=== PATIENT | female | born 1985 | race African-American/Black ===

== ENCOUNTER 2016-12-06 23:15 | Emergency (ER) | payer OTHER ==
[~2016-12-06] VITALS: Ht 152.4 cm; Wt 79.4 kg
--- NOTE | 2016-12-06 23:25 | ED GI/GU/ABDOMINAL COMPLAINT ---
History of Present Illness General Chief Complaint: Abdominal Pain/Flank Pain Stated Complaint: ABD PAIN Source: patient Exam Limitations: no limitations Vital Signs & Intake/Output Vital Signs & Intake/Output Vital Signs Date Time Temp Pulse Resp B/P B/P Pulse O2 O2 Flow FiO2 Mean Ox Delivery Rate 12/06 2325 98.2 83 18 137/90 100 ED Intake and Output 12/07 0000 12/06 1200 Intake Total Output Total Balance Patient 175 lb Weight Triage Nurses Notes Reviewed? yes ? N Is pt currently ? No Onset: Gradual Duration: getting worse Timing: recent history Quality/Severity: sharpness, severe, stabbing Severity Numbers: 7 Location: left lower quadrant Radiation: no radiation Prior Abdominal Problems: similar symptoms HPI: Patient is a 31-year-old female with an unremarkable past medical history presents emergency room with symptoms of a 6-8 month history of intermittent left lower quadrant pains where she states in the last 24 hours the pain has significantly worsened requiring patient to present to the emergency room for further evaluation and treatment. Patient has not taken any medications for symptoms. Patient does state that she has a 2 day history of increased frequency of urination. Last bowel movement was today no blood no melena noted. Patient denies any fever or chills back pain hematuria vaginal bleeding vaginal discharge. Patient currently is menstruating. Patient has not followed up outpatient for her symptoms as stated above Patient can tolerate by mouth with no change in symptoms (CUATE WOLFE) Allergies Coded Allergies: NO KNOWN ALLERGIES (12/07/16) Reconcile Medications Ketorolac Tromethamine 10 MG TABLET 1 TAB PO TID PRN PAIN (COLE CRUZ,MARYANA Moore) Past History Travel History Traveled to [place] past 21 day No Medical History Any Pertinent Medical History? none Neurological: NONE EENT: NONE Cardiovascular: NONE Respiratory: NONE Gastrointestinal: NONE Hepatic: NONE Renal: NONE Musculoskeletal: NONE Psychiatric: NONE Endocrine: NONE Blood Disorders: NONE Cancer(s): NONE PARTY SUPPLY SPECIALIST/Reproductive: NONE Surgical History Surgical History: non-contributory, N Psychosocial History What is your primary language Chilean Family History Hx Contributory? No (CUATE WOLFE) Review of Systems Review of Systems Constitutional: Reports: no symptoms. EENTM: Reports: no symptoms. Respiratory: Reports: no symptoms. Cardiovascular: Reports: no symptoms. GI: Reports: see HPI, abdominal pain. Genitourinary: Reports: see HPI, dysuria. Musculoskeletal: Reports: no symptoms. Skin: Reports: no symptoms. Neurological/Psychological: Reports: no symptoms. Hematologic/Endocrine: Reports: no symptoms. Immunologic/Allergic: Reports: no symptoms. All Other Systems: Reviewed and Negative (CUATE WOLFE) Physical Exam Physical Exam General Appearance: no apparent distress, alert, comfortable Gastrointestinal: normal bowel sounds, soft Comments: Well-developed well-nourished person in no acute distress HEENT: Normal EENT exam Neck: Supple, no lymphadenopathy, normal range of motion without pain or tenderness Back: Nontender, no CVA tenderness. Cardiovascular: Regular rate and rhythms no murmurs rubs or gallops, normal JVP Respiratory: Chest nontender. No respiratory distress.breath sounds clear to auscultation bilaterally Abdomen: Soft, GENERALIZED tender, nondistended, no appreciable organomegaly. Normal bowel sounds. No ascites Extremity: No edema, no calf tenderness to palpation, normal and equal pulses. Neuro: Alert oriented x3, motor sensory normal, Skin: No appreciable rash on exposed skin, skin is warm and dry. Psych: Mood and affect is normal, memory and judgment is normal. Core Measures ACS in differential dx? No Severe Sepsis Present: No Septic Shock Present: No (CUATE WOLFE) Progress Differential Diagnosis: AAA, AMI, appendicitis, biliary colic, bowel obstruction , colon cancer, cholecystitis, diverticulitis, ectopic , endometritis, esophageal varices, gastritis, hepatitis, hernia, hemorrhoids, ischemic bowel, inflamm bowel dis, intrauterine , kidney stone, ovarian cyst, ovarian torsion, pancreatitis, PID/cervicitis, peptic ulcer, PUD/GERD, perforated viscous, SBO, threatened AB, UTI/pyelo Plan of Care: Orders Procedure Date/time Status URINALYSIS 12/06 233 Complete LIPASE 12/06 2322 Complete HEPATIC FUNCTION PANEL 12/06 2322 Complete HUMAN BETA HCG SCREEN 12/06 2322 Complete CBC WITHOUT DIFFERENTIAL 12/06 2322 Complete BASIC METABOLIC PANEL 12/06 2322 Complete AMYLASE 12/06 2322 Complete Current Medications Sig/Juanjose Start time Last Medication Dose Stop Time Status Admin Ibuprofen 600 MG ONCE ONE 12/06 2344 CAN (Motrin) 12/06 234 Laboratory Tests 12/06/165: Anion Gap 11, Estimated GFR > 60, BUN/Creatinine Ratio 17.1, Glucose 104 H, Calcium 9.0, Total Bilirubin 0.2, Direct Bilirubin 0.2, AST 14, ALT 20, Alkaline Phosphatase 77, Total Protein 7.9, Albumin 4.1, Amylase 91, Lipase 129, Total Beta HCG NEGATIVE, CBC w Diff NO MAN DIFF REQ, RBC 4.36, MCV 83.4, MCH 26.7 L, RDW 13.7, MPV 9.4, Gran % 68.5, Lymphocytes % 19.5 L, Monocytes % 9.9 H, Eosinophils % 1.1, Basophils % 1.0, Absolute Granulocytes 7.2 H, Absolute Lymphocytes 2.0, Absolute Monocytes 1.0 H, Absolute Eosinophils 0.1, Absolute Basophils 0.1, PUBS MCHC 32.1 L, Urine Color YEL, Urine Clarity HAZY H, Urine pH 6.0, Ur Specific [place] 1.025, Urine Protein TRACE H, Urine Ketones NEG, Urine Nitrite NEG, Urine Bilirubin NEG, Urine Urobilinogen 1.0, Ur Leukocyte Esterase NEG, Ur Microscopic SEDIMENT EXAMINED, Urine RBC 15-25 H, Urine WBC RARE, Ur Epithelial Cells RARE, Urine Bacteria FEW H, Urine Mucus FEW, Urine Hemoglobin LARGE H, Urine Glucose NEG Patient currently is resting comfortable however on examination she does have generalized significant point tenderness discussed HANDOFF WITH Dr. Kwong with CT scan and labs are currently pending (HUSSEIN PATTERSON,CUATE) Initial ED EKG: none Hand-Off Endorsed To: COLE CRUZ,MARYANA Moore Endorsed Time: 4 Pending: CT, labs (CUATE WOLFE) Diagnostic Imaging: Viewed by Me: CT Scan. Discussed w/RAD: CT Scan. Radiology Impression: abd/pelvic ct... uterine fibroids. right adnexal abnormality. Comments: PATIENT: UMESH MALCOLM PRESENT AGE: 31 PATIENT ACCOUNT NO: [id number] : 86 LOCATION: [facility] ORDERING PHYSICIAN: CUATE PATTERSON SERVICE DATE: 12/06/16 EXAM TYPE: CAT - CT ABD & PELVIS W IV CONTRAST EXAMINATION: CT ABDOMEN AND PELVIS WITH CONTRAST CLINICAL INFORMATION: Generalized abdominal pain. COMPARISON: None TECHNIQUE: Multidetector volumetric imaging was performed of the abdomen and pelvis before and after the IV administration of 95 mL of Optiray 320 intravenous contrast. Sagittal and coronal reformatted images were obtained on the technologist's workstation. DLP: 338 mGy-cm FINDINGS: LUNG BASES: The visualized lung bases are unremarkable. LIVER, GALLBLADDER, AND BILIARY TREE: The liver is normal in size, shape, and attenuation. No focal hepatic lesion or biliary ductal dilatation is present. The gallbladder is unremarkable with no evidence of radiopaque gallstones, gallbladder wall thickening, or obvious pericholecystic inflammatory changes. PANCREAS: Unremarkable. SPLEEN: Unremarkable. ADRENAL GLANDS: Unremarkable. KIDNEYS AND URETERS: The kidneys are normal in size, shape, and attenuation. No hydronephrosis, hydroureter, or calculi seen. No perinephric stranding. BLADDER: Unremarkable. GASTROINTESTINAL TRACT: The stomach and small bowel are unremarkable. No dilated loops of bowel or evidence of obstruction. No colonic wall thickening or inflammatory change. Normal appendix. ABDOMINAL WALL: No significant hernia is appreciated. LYMPH NODES: Normal. VASCULAR: Unremarkable. PELVIC VISCERA: The uterus is markedly enlarged with a lobulated contour most suggestive of numerous uterine fibroids. Some of these are myometrial while others are exophytic. Fibroids likely impinge upon the endometrium is well. For instance, there is a uterine fundal mass measuring 6.1 x 5.6 x 6.8 cm. This is heterogeneous. Dominant exophytic mass at anteriorly at the lower uterine segment. This impinges upon the bladder. Bilateral adnexal masses are also noted. These may be ovarian in origin or additional exophytic uterine lesions. On the right, there is a heterogeneously enhancing 6 x 5.2 x 5.5 cm lesion. The left ovarian region is less well-defined with fluid and mild stranding noted in the left lower quadrant. Trace free fluid in the pelvis. OSSEOUS STRUCTURES: Unremarkable. IMPRESSION: Significantly abnormal appearance of the uterus which is enlarged with multiple lobulated masses demonstrating heterogeneous enhancement, most suggestive of uterine fibroids. There is a heterogeneously enhancing in the right adnexal region which may be of ovarian origin, or less likely an exophytic uterine fibroid. Further workup is recommended. DICTATED BY: NICOLÁS NAPOLES MD DATE/TIME DICTATED:12/07/1657 [employer] SUPERVISOR:SOHAN DATE/TIME TRANSCRIBED:12/07/1657 CONFIDENTIAL, DO NOT COPY WITHOUT APPROPRIATE AUTHORIZATION. <Electronically signed in Other Vendor System> SIGNED BY: NICOLÁS NAPOLES MD 12/07 0106 (COLE CRUZ,MARYANA Moore) Departure Departure Disposition: HOME OR SELF CARE Condition: Stable Referrals: PATIENT HAS NO PRIMARY CARE DR (PCP/Family) Additional Instructions: As discussed if symptoms worsen return to the emergency room. BEGIN THE Prescription OF ketorolac for pain and inflammation Departure Forms: Customer Survey General Discharge Information Prescriptions: Current Visit Scripts Ketorolac Tromethamine 1 TAB PO TID PRN PAIN #15 TAB (CUATE WOLFE) Departure Clinical Impression Primary Impression: Abdominal pain Secondary Impressions: Uterine fibroid PA/ORCHID HAND Co-Sign Statement Statement: ED Attending supervision documentation- [x] I saw and evaluated the patient. I have also reviewed all the pertinent lab results and diagnostic results. I agree with the findings and the plan of care as documented in the PA's/ORCHID HAND's documentation. pt with benign exam, no significant tenderness to abd.... ct scan shows uterine fibroids and abnormality at right adnexa... i discussed these results with her and counseled her to follow up with her [facility] field agent to consider u/s and further care. [] I have reviewed the ED Record and agree with the PA's/ORCHID HAND's documentation. [] Additions or exceptions (if any) to the PAs/ORCHID HAND's note and plan are summarized below: [] (COLE CRUZ,MARYANA Moore)
[2016-12-07 00:04] LABS: ABSOLUTE BASOPHIL COUNT 0.1 /CUMM (0.0-0.2); ABSOLUTE EOSINOPHIL COUNT 0.1 /CUMM (0.0-0.7); ABSOLUTE GRANULOCYTE CT 7.2 /CUMM (1.4-6.5); EOSINOPHIL % 1.1 % (0-5); GRANULOCYTE % 68.5 % (42.2-75.2); HEMATOCRIT 36.4 % (37-47); MEAN CORPUSCULAR HGB 26.7 PG (27.0-31.0); MEAN CORPUSCULAR HGB CONC 32.1 G/DL (33.0-37.0); MEAN CORPUSCULAR VOLUME 83.4 FL (81.0-99.0); MEAN PLATELET VOLUME 9.4 FL (7.4-10.4); PLATELET COUNT 242 /CUMM (130-400); RBC DISTRIBUTION WIDTH 13.7 % (11.5-14.5); RED BLOOD CELL CT 4.36 /CUMM (4.20-5.40); WHITE BLOOD CELL COUNT 10.4 /CUMM (4.8-10.8)
[2016-12-07] MEDS ORDERED: KETOROLAC TROME10 M1 PO (00:04)
--- NOTE | 2016-12-07 01:06 | CT SCAN REPORT ---
EXAMINATION: CT ABDOMEN AND PELVIS WITH CONTRAST CLINICAL INFORMATION: Generalized abdominal pain. COMPARISON: None TECHNIQUE: Multidetector volumetric imaging was performed of the abdomen and pelvis before and after the IV administration of 95 mL of Optiray 320 intravenous contrast. Sagittal and coronal reformatted images were obtained on the technologist's workstation. DLP: 338 mGy-cm FINDINGS: LUNG BASES: The visualized lung bases are unremarkable. LIVER, GALLBLADDER, AND BILIARY TREE: The liver is normal in size, shape, and attenuation. No focal hepatic lesion or biliary ductal dilatation is present. The gallbladder is unremarkable with no evidence of radiopaque gallstones, gallbladder wall thickening, or obvious pericholecystic inflammatory changes. PANCREAS: Unremarkable. SPLEEN: Unremarkable. ADRENAL GLANDS: Unremarkable. KIDNEYS AND URETERS: The kidneys are normal in size, shape, and attenuation. No hydronephrosis, hydroureter, or calculi seen. No perinephric stranding. BLADDER: Unremarkable. GASTROINTESTINAL TRACT: The stomach and small bowel are unremarkable. No dilated loops of bowel or evidence of obstruction. No colonic wall thickening or inflammatory change. Normal appendix. ABDOMINAL WALL: No significant hernia is appreciated. LYMPH NODES: Normal. VASCULAR: Unremarkable. PELVIC VISCERA: The uterus is markedly enlarged with a lobulated contour most suggestive of numerous uterine fibroids. Some of these are myometrial while others are exophytic. Fibroids likely impinge upon the endometrium is well. For instance, there is a uterine fundal mass measuring 6.1 x 5.6 x 6.8 cm. This is heterogeneous. Dominant exophytic mass at anteriorly at the lower uterine segment. This impinges upon the bladder. Bilateral adnexal masses are also noted. These may be ovarian in origin or additional exophytic uterine lesions. On the right, there is a heterogeneously enhancing 6 x 5.2 x 5.5 cm lesion. The left ovarian region is less well-defined with fluid and mild stranding noted in the left lower quadrant. Trace free fluid in the pelvis. OSSEOUS STRUCTURES: Unremarkable. IMPRESSION: Significantly abnormal appearance of the uterus which is enlarged with multiple lobulated masses demonstrating heterogeneous enhancement, most suggestive of uterine fibroids. There is a heterogeneously enhancing in the right adnexal region which may be of ovarian origin, or less likely an exophytic uterine fibroid. Further workup is recommended.
[2016-12-07 01:52] VITALS: BP 125/69
== END 2016-12-07 01:53 ==
LOC: ERH 23:15
PROVIDERS: Pediatrics
DX: D21.9 Benign neoplasm of connective and other soft tissue, unspecified (principal)
CPT/HCPCS: 74177; 81001; 96374; J1885